=== PATIENT | female | born 1935 | race Caucasian/White ===

== ENCOUNTER 2017-10-27 20:47 | Emergency (ER) | payer MEDICARE ==
[~2017-10-27] VITALS: Ht 157.5 cm; Wt 72.6 kg
--- NOTE | 2017-10-27 20:47 | NUR ---
BBSELF FROM HOME PT C/O LEFT NARE EPISTAXIS X1800. NO SOB NOTED. NO PAIN C/O. BLEEDING IS CONTROLLED AT THE MOMENT. A/OX4 VSS NAD WILL CONTINUE TO MONITOR FOR ANY CHANGES
[2017-10-27] MEDS ORDERED: LIDOCAINE VISCOUS 2% UD 15 ML UDC ONE (21:11)
--- NOTE | 2017-10-27 21:25 | NUR ---
ER AT BEDSIDE FOR EVAL AND RHINO ROCKET
[2017-10-27 21:38] LABS: BASOPHILS # (AUTO) 0.1 /CMM (0.0-0.2); BASOPHILS % (AUTO) 0.6 % (0.0-2.0); EOSINOPHILS # (AUTO) 0.1 /CMM (0.0-0.7); EOSINOPHILS % (AUTO) 1.4 % (0.0-6.0); HEMATOCRIT 45 % (33-45); HEMOGLOBIN 15.3 g/dL (11.5-14.8); LYMPHOCYTES # (AUTO) 1.7 /CMM (0.8-4.8); LYMPHOCYTES % (AUTO) 18.3 % (20.0-44.0); MEAN CORPUSCULAR HEMOGLOBIN 31 PG (26.0-33.0); MEAN CORPUSCULAR HGB CONC 34 g/dl (31.0-36.0); MEAN CORPUSCULAR VOLUME 93 fL (82-100); MONOCYTES # (AUTO) 0.6 /CMM (0.1-1.30); MONOCYTES % (AUTO) 6.5 % (2.0-12.0); NEUTROPHILS # (AUTO) 6.9 /CMM (1.8-8.9); NEUTROPHILS % (AUTO) 73.2 % (43.0-81.0); PLATELET COUNT (AUTO) 275 /CMM (150-450); RDW COEFFICIENT OF VARIATION 12.9 (11.5-15.0); RED BLOOD CELL COUNT(AUTO) 4.87 MIL/uL (4.0-5.2); WHITE BLOOD COUNT (AUTO) 9.4 K/uL (4.3-11.0)
[2017-10-27 21:58] LABS: ALANINE AMINOTRANSFERASE 23 U/L (12-78); ALBUMIN 3.5 g/dL (3.4-5.0); ALKALINE PHOSPHATASE 85 U/L (46-116); ASPARTATE AMINOTRANSFERASE 15 U/L (15-37); BILIRUBIN,DIRECT 0.1 mg/dL (0.0-0.2); BILIRUBIN,TOTAL 0.3 mg/dL (0.2-1.0); CALCIUM, SERUM 10.8 mg/dL (8.5-10.1); CARBON DIOXIDE 24 mmol/L (21-32); CHLORIDE 105 mmol/L (98-107); GLUCOSE 113 mg/dL (74-106); POTASSIUM 3.9 mmol/L (3.5-5.1); SODIUM SERUM 139 mmol/L (136-145); TOTAL PROTEIN, SERUM 7.5 g/dL (6.4-8.2); UREA NITROGEN, BLOOD 21 mg/dL (7-18)
[2017-10-27 22:01] LABS: INR 0.91 (0.87-1.13)
[2017-10-27 22:03] LABS: TROPONIN I < 0.017 ng/mL (0.00-0.056)
[2017-10-27] MEDS ORDERED: HYDROCODONE/APAP 5/325MG 1 EACH TABLET ONE (22:17)
[2017-10-27] MEDS ORDERED: HYDROCODONE/APAP 5/325MG 1 EACH TABLET PO ONE (22:30)
[2017-10-27 22:38] VITALS: BP 141/85
== END 2017-10-27 22:39 | disposition home or self-care (01) ==
LOC: ER 20:49
DX: R04.0 Epistaxis (principal); I48.91 Unspecified atrial fibrillation
CPT/HCPCS: 30901; 36415; 80048; 80076; 84484; 85025; 85730; 93005; 99285; A4606; Z7610

== ENCOUNTER 2019-02-12 09:55 | Emergency (ER) | payer MEDICARE, BC ==
[~2019-02-12] VITALS: Ht 160 cm; Wt 77.8 kg
--- NOTE | 2019-02-12 10:02 | NUR ---
CAME IN FOR EPISTAXIS 2HRS [employer]. TOOK ELIQUIS THIS MORNING. TO ER BED 3, HOOKED TO MONITOR, PROVIDED W WARM BLANKET, AWAITING MD RODRIGUEZ.
--- NOTE | 2019-02-12 10:20 | NUR ---
PROCEDURES ANALYST AT BEDSIDE
[2019-02-12 10:26] LABS: BASOPHILS % (AUTO) 0.4 % (0.0-2.0); EOSINOPHILS % (AUTO) 0.8 % (0.0-6.0); HEMATOCRIT 45 % (33-45); HEMOGLOBIN 15.4 g/dL (11.5-14.8); LYMPHOCYTES % (AUTO) 11.8 % (20.0-44.0); MEAN CORPUSCULAR HGB CONC 34 g/dl (31.0-36.0); MEAN CORPUSCULAR VOLUME 96 fL (82-100); MONOCYTES # (AUTO) 0.5 /CMM (0.1-1.30); MONOCYTES % (AUTO) 5.3 % (2.0-12.0); NEUTROPHILS # (AUTO) 7.2 /CMM (1.8-8.9); NEUTROPHILS % (AUTO) 81.7 % (43.0-81.0); PLATELET COUNT (AUTO) 254 /CMM (150-450); RED BLOOD CELL COUNT(AUTO) 4.69 MIL/uL (4.0-5.2); WHITE BLOOD COUNT (AUTO) 8.8 K/uL (4.3-11.0)
--- NOTE | 2019-02-12 10:27 | NUR ---
DR FOSTER AT BEDSIDE
[2019-02-12] MEDS ORDERED: PHENYLEPHRINE 0.5% NASAL SPRAY 15 ML BOTTLE NS ONE (10:30)
[2019-02-12 10:38] LABS: CALCIUM, SERUM 9.3 mg/dL (8.5-10.1); CARBON DIOXIDE 24 mmol/L (21-32); CHLORIDE 107 mmol/L (98-107); CREATININE 0.7 mg/dL (0.6-1.3); GLUCOSE 120 mg/dL (74-106); POTASSIUM 3.8 mmol/L (3.5-5.1); SODIUM SERUM 142 mmol/L (136-145); UREA NITROGEN, BLOOD 31 mg/dL (7-18)
--- NOTE | 2019-02-12 10:50 | NUR ---
DR FOSTER AT BEDSIDE, PT STILL ON EPISTAXIS AFTER NASAL SPRAY. DR FOSTER PLACED RAPID RHINO @ R NOSTRIL
--- NOTE | 2019-02-12 12:11 | NUR ---
Patient discharged to home in stable condition. Written and verbal after care instructions given. Patient verbalizes understanding of instruction.
[2019-02-12 12:12] VITALS: BP 139/86
== END 2019-02-12 12:14 | disposition home or self-care (01) ==
LOC: ER 09:59
DX: R04.0 Epistaxis (principal); I10 Essential (primary) hypertension; I48.91 Unspecified atrial fibrillation
CPT/HCPCS: 30901; 36415; 80048; 85025; 85730; 99284; A6402

== ENCOUNTER 2019-02-13 11:02 | Emergency (ER) | payer MEDICARE, BC ==
[~2019-02-13] VITALS: Ht 157.5 cm; Wt 77.1 kg
[2019-02-13 11:15] VITALS: BP 130/66
--- NOTE | 2019-02-13 12:08 | NUR ---
Patient discharged to home in stable condition. Written and verbal after care instructions given. Patient verbalizes understanding of instruction.
== END 2019-02-13 12:08 | disposition home or self-care (01) ==
LOC: ER 11:03
DX: R04.0 Epistaxis (principal); I48.91 Unspecified atrial fibrillation

== ENCOUNTER 2019-02-14 12:06 | Emergency (ER) | payer OTHER, MEDICARE ==
[~2019-02-14] VITALS: Ht 162.6 cm; Wt 60.8 kg
[2019-02-14 12:13] VITALS: BP 133/75
--- NOTE | 2019-02-14 12:22 | NUR ---
NASAL PACKING REMOVE BY DR. TOM.
--- NOTE | 2019-02-14 12:34 | NUR ---
Patient discharged to home in stable condition. Written and verbal after care instructions given. Patient verbalizes understanding of instruction.
== END 2019-02-14 12:35 | disposition home or self-care (01) ==
LOC: ER 12:10
DX: R04.0 Epistaxis (principal); I48.91 Unspecified atrial fibrillation
CPT/HCPCS: Z7502

== ENCOUNTER 2024-06-09 13:57 | Inpatient (IN) | payer BC, MEDICARE ==
[~2024-06-09] VITALS: Ht 157.5 cm; Wt 80.7 kg
[2024-06-09 14:37] LABS: BASOPHILS % (AUTO) 1.4 % (0.0-2.0); EOSINOPHILS # (AUTO) 0.2 K/uL (0.0-0.7); EOSINOPHILS % (AUTO) 2.9 % (0.0-6.0); HEMATOCRIT 40 % (33-45); LYMPHOCYTES # (AUTO) 1.3 K/uL (0.8-4.8); MEAN CORPUSCULAR HEMOGLOBIN 29 PG (26.0-33.0); MEAN CORPUSCULAR HGB CONC 32 g/dl (31.0-36.0); MEAN CORPUSCULAR VOLUME 90 fL (82-100); MONOCYTES # (AUTO) 0.5 K/uL (0.1-1.30); MONOCYTES % (AUTO) 7.2 % (2.0-12.0); NEUTROPHILS # (AUTO) 4.3 K/uL (1.8-8.9); NEUTROPHILS % (AUTO) 67.5 % (43.0-81.0); PLATELET COUNT (AUTO) 318 K/uL (150-450); RED BLOOD CELL COUNT(AUTO) 4.46 MIL/uL (4.0-5.2); RED CELL DISTRIBUTION WIDTH 15.8 % (11.5-15.0); WHITE BLOOD COUNT (AUTO) 6.4 K/uL (4.3-11.0)
[2024-06-09 14:38] LABS: BASOPHILS # (AUTO) 0.1 K/uL (0.0-0.2)
[2024-06-09 14:57] LABS: APPEARANCE,URINE Clear (CLEAR); BILIRUBIN,URINE Negative (NEGATIVE); BLOOD, URINE Negative Ery/uL (NEGATIVE); COLOR,URINE YELLOW (YELLOW); KETONES,URINE Negative (NEGATIVE); LEUKOCYTE ESTERASE ,URINE Trace (NEGATIVE); NITRITE, URINE Negative (NEGATIVE); PROTEIN,URINE Negative (NEGATIVE); UGLUCOSE Negative (NEGATIVE); UROBILINOGEN,URINE 0.2 EU/dL (0.2)
[2024-06-09 15:09] LABS: AMPHETAMINE, URINE NEGATIVE (NEGATIVE); BARBITURATE, URINE NEGATIVE (NEGATIVE); BENZODIAZEPINE, URINE NEGATIVE (NEGATIVE); CANNABINOID, URINE NEGATIVE (NEGATIVE); COCCAINE, URINE NEGATIVE (NEGATIVE); OPIATE, URINE NEGATIVE (NEGATIVE); PHENCYCLIDINE SCREEN,URINE NEGATIVE (NEGATIVE)
[2024-06-09 15:25] LABS: ALANINE AMINOTRANSFERASE 17 U/L (12-78); ALCOHOL, BLOOD < 3 mg/dL (0-10); ALKALINE PHOSPHATASE 109 U/L (46-116); ASPARTATE AMINOTRANSFERASE 15 U/L (15-37); BILIRUBIN,DIRECT 0.1 mg/dL (0.0-0.2); BILIRUBIN,TOTAL 0.4 mg/dL (0.2-1.0); CARBON DIOXIDE 28 mmol/L (21-32); CHLORIDE 106 mmol/L (98-107); GLUCOSE 112 mg/dL (74-106); POTASSIUM 4.1 mmol/L (3.5-5.1); SODIUM SERUM 134 mmol/L (136-145); TOTAL PROTEIN, SERUM 6.6 g/dL (6.4-8.2); UREA NITROGEN, BLOOD 17 mg/dL (7-18)
[2024-06-09 15:31] LABS: SALICYLATE 0.8 mg/dL (2.8-20.0)
[2024-06-09 15:32] LABS: ACETAMINOPHEN 0 ug/ml (10-30); CALCIUM, SERUM 9.7 mg/dL (8.5-10.1)
[2024-06-09] MEDS: CEFTRIAXONE 1GM BAG (ER ONLY) 1 GM/50 ML PIGGYBACK IV ONE (16:00)
[2024-06-09] MEDS ORDERED: CEFTRIAXONE 1GM BAG (ER ONLY) 50 ML IV ONE (16:16)
[2024-06-09 16:52] LABS: RBC,URINE 0-2 /HPF (0-2)
[2024-06-09 16:53] LABS: ADD URINE CULTURE NO; BACTERIA,URINE None seen /HPF (None Seen); SQUAMOUS EPITHELIAL CELL,UR 0-2 /HPF (None Seen)
[2024-06-09] MEDS ORDERED: ACETAMINOPHEN 325 MG TABLET PO PRN (18:30)
[2024-06-09] MEDS ORDERED: ONDANSETRON HCL/PF 4 MG/2 ML VIAL IVP PRN (18:30)
[2024-06-09 20:00] VITALS: BP 112/70; TEMP 98.1; O2SAT 95
[2024-06-09 20:32] VITALS: BP 175/91; TEMP 99.5; O2SAT 95
[2024-06-09] MEDS: LEVOTHYROXINE SODIUM 25 MCG TABLET PO SCH (21:15)
[2024-06-09] MEDS: IV NS 0.9% 1,000 ML IV PRN (21:16)
[2024-06-10] VITALS: BP 145/73; TEMP 98.8; O2SAT 98
[2024-06-10 04:00] VITALS: BP 158/81; TEMP 98.2; O2SAT 95
[2024-06-10 07:01] LABS: BASOPHILS % (AUTO) 0.6 % (0.0-2.0); EOSINOPHILS # (AUTO) 0.2 K/uL (0.0-0.7); EOSINOPHILS % (AUTO) 2.2 % (0.0-6.0); HEMATOCRIT 37 % (33-45); LYMPHOCYTES # (AUTO) 1.8 K/uL (0.8-4.8); LYMPHOCYTES % (AUTO) 23.5 % (20.0-44.0); MEAN CORPUSCULAR HEMOGLOBIN 29 PG (26.0-33.0); MEAN CORPUSCULAR HGB CONC 33 g/dl (31.0-36.0); MEAN CORPUSCULAR VOLUME 90 fL (82-100); MONOCYTES # (AUTO) 0.6 K/uL (0.1-1.30); MONOCYTES % (AUTO) 8.6 % (2.0-12.0); NEUTROPHILS # (AUTO) 4.9 K/uL (1.8-8.9); NEUTROPHILS % (AUTO) 65.1 % (43.0-81.0); PLATELET COUNT (AUTO) 309 K/uL (150-450); RED BLOOD CELL COUNT(AUTO) 4.11 MIL/uL (4.0-5.2); RED CELL DISTRIBUTION WIDTH 15.2 % (11.5-15.0); WHITE BLOOD COUNT (AUTO) 7.5 K/uL (4.3-11.0)
[2024-06-10 07:10] LABS: CALCIUM, SERUM 9.3 mg/dL (8.5-10.1); CARBON DIOXIDE 25 mmol/L (21-32); CHLORIDE 110 mmol/L (98-107); CREATININE 0.9 mg/dL (0.6-1.3); GLUCOSE 103 mg/dL (74-106); MAGNESIUM 2.2 mg/dL (1.8-2.4); PHOSPHORUS 3.2 mg/dL (2.5-4.9); POTASSIUM 3.9 mmol/L (3.5-5.1); SODIUM SERUM 144 mmol/L (136-145); UREA NITROGEN, BLOOD 14 mg/dL (7-18)
[2024-06-10 08:00] VITALS: BP 114/82; TEMP 99; O2SAT 95
[2024-06-10] MEDS: ENOXAPARIN SODIUM 40 MG/0.4 ML DISP.SYRIN SQ SCH (08:30)
[2024-06-10 12:00] VITALS: BP 140/99; TEMP 99; O2SAT 95
[2024-06-10] MEDS ORDERED: IPRA0.2S49 IH (12:31)
[2024-06-10] MEDS ORDERED: VENL150C2 PO (12:31)
[2024-06-10] MEDS ORDERED: CHOL200059 PO (12:31)
[2024-06-10] MEDS ORDERED: MECL-182 PO (12:31)
[2024-06-10] MEDS ORDERED: APIX2.5T PO (12:31)
[2024-06-10] MEDS ORDERED: ROSU20TA2 PO (12:31)
[2024-06-10] MEDS ORDERED: RIZA5TAB83 PO (12:31)
[2024-06-10] MEDS ORDERED: DILT180C66 PO (12:31)
[2024-06-10] MEDS ORDERED: MIRT7.5T10 PO (12:31)
[2024-06-10] MEDS ORDERED: LEVO112T2 PO (12:31)
[2024-06-10] MEDS ORDERED: IPRATROPIUM NEB FS 0.5 MG/2.5 ML AMPUL.NEB IH PRN (14:00)
[2024-06-10] MEDS: POLYETHYLENE GLYCOL 3350 17 GM POWD.PACK PO PRN (14:33)
[2024-06-10] MEDS: CEFTRIAXONE 1 G in IV D5W 50 ML IV SCH (15:03)
[2024-06-10 16:00] VITALS: BP 120/63; TEMP 99.2; O2SAT 96
[2024-06-10] MEDS: APIXABAN 2.5 MG TABLET PO SCH (16:11)
[2024-06-10] MEDS: MAG HYDROX/AL HYDROX/SIMETH 30 ML UDC PO PRN (19:26)
[2024-06-10 20:00] VITALS: BP 138/79; TEMP 99.3; O2SAT 96
[2024-06-10] MEDS: ATORVASTATIN 40 MG TABLET PO SCH (21:09)
[2024-06-10] MEDS: MIRTAZAPINE 15 MG TABLET PO SCH (21:09)
[2024-06-11] VITALS: BP 155/63; TEMP 98.8; O2SAT 100
[2024-06-11 04:00] VITALS: BP 131/69; TEMP 98.7; O2SAT 95
[2024-06-11 08:00] VITALS: BP 140/65; TEMP 97.6; O2SAT 98
[2024-06-11 08:30] LABS: CALCIUM, SERUM 9.7 mg/dL (8.5-10.1); CARBON DIOXIDE 26 mmol/L (21-32); CHLORIDE 108 mmol/L (98-107); CREATININE 0.8 mg/dL (0.6-1.3); GLUCOSE 101 mg/dL (74-106); MAGNESIUM 2.6 mg/dL (1.8-2.4); PHOSPHORUS 3.7 mg/dL (2.5-4.9); POTASSIUM 4.7 mmol/L (3.5-5.1); SODIUM SERUM 141 mmol/L (136-145); UREA NITROGEN, BLOOD 18 mg/dL (7-18)
[2024-06-11] MEDS: DILTIAZEM HCL CD 180 MG PO SCH (08:30)
[2024-06-11] MEDS: CHOLECALCIFEROL 1,000 UNIT TABLET (VIT D3) PO SCH (08:30)
[2024-06-11] MEDS: LEVOTHYROXINE SODIUM 112 MCG TABLET PO SCH (08:31)
[2024-06-11 08:56] LABS: BASOPHILS # (AUTO) 0.1 K/uL (0.0-0.2); BASOPHILS % (AUTO) 0.9 % (0.0-2.0); EOSINOPHILS # (AUTO) 0.2 K/uL (0.0-0.7); EOSINOPHILS % (AUTO) 2.3 % (0.0-6.0); HEMATOCRIT 38 % (33-45); HEMOGLOBIN 12.2 g/dL (11.5-14.8); LYMPHOCYTES # (AUTO) 1.8 K/uL (0.8-4.8); LYMPHOCYTES % (AUTO) 22.2 % (20.0-44.0); MEAN CORPUSCULAR HEMOGLOBIN 29 PG (26.0-33.0); MEAN CORPUSCULAR HGB CONC 32 g/dl (31.0-36.0); MEAN CORPUSCULAR VOLUME 90 fL (82-100); MONOCYTES # (AUTO) 0.7 K/uL (0.1-1.30); MONOCYTES % (AUTO) 8.4 % (2.0-12.0); NEUTROPHILS # (AUTO) 5.5 K/uL (1.8-8.9); NEUTROPHILS % (AUTO) 66.2 % (43.0-81.0); PLATELET COUNT (AUTO) 294 K/uL (150-450); RED CELL DISTRIBUTION WIDTH 15.6 % (11.5-15.0); WHITE BLOOD COUNT (AUTO) 8.3 K/uL (4.3-11.0)
[2024-06-11] MEDS: VENLAFAXINE XR 150 MG CAP.SR.24H PO SCH (08:59)
[2024-06-11 11:59] LABS: ANISOCYTOSIS 1+; PLATELET ESTIMATE ADEQUATE
[2024-06-11 12:00] VITALS: BP 125/74; TEMP 97.9; O2SAT 97
[2024-06-11 16:00] VITALS: BP 107/80; TEMP 98.5; O2SAT 95
[2024-06-11 20:00] VITALS: BP 136/71; TEMP 99.3; O2SAT 96
[2024-06-11] MEDS: GABAPENTIN 100 MG CAPSULE PO SCH (21:19)
[2024-06-11] MEDS ORDERED: VANCOMYCIN 1 GM /D5W 250 ML PB IV ONE (23:24)
[2024-06-11] MEDS: VANCOMYCIN 1 GM in IV D5W 250 ML IV ONE (23:30)
[2024-06-12 04:00] VITALS: BP 150/74; TEMP 97.7; O2SAT 99
[2024-06-12 06:32] LABS: BASOPHILS # (AUTO) 0.1 K/uL (0.0-0.2); BASOPHILS % (AUTO) 0.9 % (0.0-2.0); EOSINOPHILS # (AUTO) 0.2 K/uL (0.0-0.7); EOSINOPHILS % (AUTO) 3.7 % (0.0-6.0); HEMATOCRIT 39 % (33-45); HEMOGLOBIN 12.6 g/dL (11.5-14.8); LYMPHOCYTES # (AUTO) 1.7 K/uL (0.8-4.8); MEAN CORPUSCULAR HEMOGLOBIN 29 PG (26.0-33.0); MEAN CORPUSCULAR HGB CONC 33 g/dl (31.0-36.0); MEAN CORPUSCULAR VOLUME 90 fL (82-100); MONOCYTES # (AUTO) 0.5 K/uL (0.1-1.30); MONOCYTES % (AUTO) 7.9 % (2.0-12.0); NEUTROPHILS # (AUTO) 3.7 K/uL (1.8-8.9); NEUTROPHILS % (AUTO) 60.5 % (43.0-81.0); PLATELET COUNT (AUTO) 267 K/uL (150-450); RED BLOOD CELL COUNT(AUTO) 4.31 MIL/uL (4.0-5.2); RED CELL DISTRIBUTION WIDTH 15.6 % (11.5-15.0); WHITE BLOOD COUNT (AUTO) 6.2 K/uL (4.3-11.0)
[2024-06-12 06:51] LABS: CALCIUM, SERUM 9.7 mg/dL (8.5-10.1); CARBON DIOXIDE 26 mmol/L (21-32); CHLORIDE 104 mmol/L (98-107); CREATININE 0.8 mg/dL (0.6-1.3); GLUCOSE 105 mg/dL (74-106); MAGNESIUM 2.1 mg/dL (1.8-2.4); PHOSPHORUS 3.7 mg/dL (2.5-4.9); POTASSIUM 3.9 mmol/L (3.5-5.1); SODIUM SERUM 140 mmol/L (136-145); UREA NITROGEN, BLOOD 16 mg/dL (7-18)
[2024-06-12 08:00] VITALS: BP 147/75; TEMP 98.1
[2024-06-12] MEDS: Z GUARD REMEDY 4 OZ OINT TP PRN (10:52)
[2024-06-12] MEDS: MECLIZINE HCL 12.5 MG TABLET PO PRN (10:52)
[2024-06-12 16:00] VITALS: BP 128/90; TEMP 97.3; O2SAT 96
[2024-06-12] MEDS: VANCOMYCIN HCL 1.25 GM in IV D5W 250 ML IV SCH (17:19)
[2024-06-12 20:00] VITALS: BP 117/75; TEMP 98.4; O2SAT 97
[2024-06-13 04:00] VITALS: BP 125/65; TEMP 98.3; O2SAT 97
[2024-06-13 06:27] LABS: BASOPHILS % (AUTO) 0.7 % (0.0-2.0); EOSINOPHILS # (AUTO) 0.3 K/uL (0.0-0.7); EOSINOPHILS % (AUTO) 3.8 % (0.0-6.0); HEMATOCRIT 34 % (33-45); HEMOGLOBIN 10.9 g/dL (11.5-14.8); LYMPHOCYTES # (AUTO) 1.6 K/uL (0.8-4.8); LYMPHOCYTES % (AUTO) 24.1 % (20.0-44.0); MEAN CORPUSCULAR HEMOGLOBIN 29 PG (26.0-33.0); MEAN CORPUSCULAR HGB CONC 32 g/dl (31.0-36.0); MEAN CORPUSCULAR VOLUME 90 fL (82-100); MONOCYTES # (AUTO) 0.6 K/uL (0.1-1.30); MONOCYTES % (AUTO) 8.9 % (2.0-12.0); NEUTROPHILS # (AUTO) 4.2 K/uL (1.8-8.9); NEUTROPHILS % (AUTO) 62.5 % (43.0-81.0); PLATELET COUNT (AUTO) 280 K/uL (150-450); RED BLOOD CELL COUNT(AUTO) 3.74 MIL/uL (4.0-5.2); RED CELL DISTRIBUTION WIDTH 15.4 % (11.5-15.0); WHITE BLOOD COUNT (AUTO) 6.7 K/uL (4.3-11.0)
[2024-06-13 06:42] LABS: CALCIUM, SERUM 9.5 mg/dL (8.5-10.1); CARBON DIOXIDE 25 mmol/L (21-32); CHLORIDE 104 mmol/L (98-107); CREATININE 0.8 mg/dL (0.6-1.3); GLUCOSE 104 mg/dL (74-106); MAGNESIUM 1.9 mg/dL (1.8-2.4); PHOSPHORUS 3.6 mg/dL (2.5-4.9); POTASSIUM 3.9 mmol/L (3.5-5.1); SODIUM SERUM 140 mmol/L (136-145); UREA NITROGEN, BLOOD 18 mg/dL (7-18)
[2024-06-13 08:00] VITALS: BP 125/60; TEMP 97.7; O2SAT 95
[2024-06-13] MEDS ORDERED: CIPR500S2 PO (13:18)
[2024-06-13] MEDS ORDERED: GABA-532 PO (13:18)
[2024-06-13] MEDS ORDERED: ERYT3.5O9 EACHEYE (13:18)
[2024-06-13] MEDS: ERYTHROMYCIN BASE OPHTH 3.5 GM TUBE EACHEYE SCH (13:30)
[2024-06-13 16:00] VITALS: BP 127/61; TEMP 97.9; O2SAT 96
[2024-06-13 20:02] VITALS: BP 134/76; TEMP 98.1; O2SAT 96
[2024-06-13] MEDS: CIPROFLOXACIN HCL 500 MG TABLET PO SCH (20:15)
[2024-06-14 04:33] VITALS: BP 143/73; TEMP 97.6; O2SAT 98
[2024-06-14 07:26] LABS: CALCIUM, SERUM 9.7 mg/dL (8.5-10.1); CARBON DIOXIDE 28 mmol/L (21-32); CHLORIDE 106 mmol/L (98-107); CREATININE 0.8 mg/dL (0.6-1.3); GLUCOSE 105 mg/dL (74-106); SODIUM SERUM 141 mmol/L (136-145); UREA NITROGEN, BLOOD 15 mg/dL (7-18)
[2024-06-14 08:00] VITALS: BP 149/60; TEMP 97.6; O2SAT 97
[2024-06-14 08:53] VITALS: BP 149/60
== END 2024-06-14 14:18 | disposition short-term general hospital (02) | DRG 689 ==
LOC: ER 14:00 → TELE1 17:57 → MEDSG1 06-11 12:57
PROVIDERS: ADMIT Internal Medicine; ATTEND Nurse Practitioner Family
DX: N39.0 Urinary tract infection, site not specified (principal); G93.41 Metabolic encephalopathy; D68.59 Other primary thrombophilia; I50.32 Chronic diastolic (congestive) heart failure; I48.91 Unspecified atrial fibrillation; I11.0 Hypertensive heart disease with heart failure; Z87.440 Personal history of urinary (tract) infections; Z88.0 Allergy status to penicillin; E03.9 Hypothyroidism, unspecified; E87.6 Hypokalemia; B96.89 Other specified bacterial agents as the cause of diseases classified elsewhere; Z79.899 Other long term (current) drug therapy; Z79.01 Long term (current) use of anticoagulants; Z79.890 Hormone replacement therapy; Z79.51 Long term (current) use of inhaled steroids
CPT/HCPCS: 36415; 70450-TC; 71045-TC; 80048-TC; 80076-TC; 81001; 82962-TC; 83735-TC; 83880; 84100-TC; 84439-TC; 84443-TC; 84484-TC; 85025-TC; 87040-TC; 87086-TC; 97110-TC; 97116-TC; 97530-TC; 97535-TC; A4223; G0378; G0480; J0696; J1650; J3370; J7030; J7050; J7060; J8597